=== PATIENT | female | born 2000 | race African-American/Black ===

== ENCOUNTER 2024-10-26 20:55 | Emergency (ER) | payer OTHER, SELFPAY ==
--- OUTSIDE RECORDS SUMMARY | 2024-10-26 21:22 | XMS_ITS | Encounter Summary ---
Author Organization [employer] Address [address] [place] [id number] Care Team Providers Care Brick Maker Name Role Phone Unavailable Primary Care Provider Unavailabl e Encounter Details Date Type Department Care Team (Late st Contact Info) Description 09/11/2021 Transcribed Document [facility] [place] Family Medicine Counts include 234 beds at the [facility] [place] [address] ProviderMac MD [address] [place], [place] [id number] Social History Tobacco Use Types Packs/Day Years Used Date Smoking Tobacco: Never Assessed Comments Unknown Sex and Gender Information Value Date Recorded Sex Assigned at Female 11/15/2021 4:02 PM CDT Legal Sex Female 4:02 PM CDT Gender Identity Female 11/15/2021 4:02 PM CDT Sexual Orientation Not on file documented as of this encounter Miscellaneous Notes * Cerner Conversion Note - Historical ProviderMD - 09/11/2021 2:20 AM CDT [place] Suicide Severity Rating Scale (C-SSRS) Entered On: 09/11/2021 2:55 EDT Performed On: 09/11/2021 2:54 EDT by Mayela Galvez RN [place] Suicide Severity Rating Scale (C-SSRS) CSSRS Past Month Wish to be : No CSSRS Past Month Suicidal Thoughts : No CSSRS Lifetime Suicide Behavior : No Suicide Severity Rating Score : 0 Suicide Severity Rating : No Additional Care Required at this time Mayela Galvez RN - 09/11/2021 2:54 EDT documented in this encounter Plan of Treatment Not on file documented as of this encounter Visit Diagnoses Not on filedocumented in this encounter
--- OUTSIDE RECORDS SUMMARY | 2024-10-26 21:22 | XMS_ITS | Encounter Summary ---
Author Organization [employer] Address [address] [place] [address] Care Team Providers Care Inspector Balance Truing Name Role Phone Unavailable Primary Care Provider Unavailabl e Encounter Details Date Type Department Care Team (Late st Contact Info) Description 09/11/2021 Transcribed Document [facility] [place] [facility] to [facility] [place] [address] ProviderMac MD [address] [place] [id number] Social History Tobacco Use Types Packs/Day Years Used Date Smoking Tobacco: Never Assessed Comments Unknown Sex and Gender Information Value Date Recorded Sex Assigned at Female 11/15/2021 4:02 PM CDT Legal Sex Female 4:02 PM CDT Gender Identity Female 11/15/2021 4:02 PM CDT Sexual Orientation Not on file documented as of this encounter Miscellaneous Notes * Cerner Conversion Note - Mac ProviderMD - 09/11/2021 2:48 AM CDT Patient: GETACHEW TUTTLE Age: 21 years Sex: Female : 2000 Associated Diagnoses: Intussusception; Abdominal pain; Mass of omentum Author: DAGOBERTO NAVARRO MD Basic Information History source: Patient. Arrival mode: Private vehicle. History limitation: None. Additional information: Chief Complaint from Nursing Triage Note : Chief Complaint 09/11/2021 2:27 EDT Chief Complaint pt to ER c/o RLQ abd pain w/ nausea that began yesterday morning. reports she went to [facility] last night and was told it may be her appendix, however the CT machine there was down and they said that she needed to go be evaluated somewhere else . History of Present Illness This is a 21-year-old female with a past medical history significant for hypertension, depression who presents to the emergency department for 1 day of right lower quadrant abdominal pain. Pain is worse with deep breathing and movement. She has not had any nausea or vomiting. No fever. No history of abdominal surgeries. She has no known history of ovarian cyst and denies any vaginal discharge. She has not had any dysuria or hematuria. She notes that she just came off of her menstrual cycle so does not think she is . She went to [facility] and was told that she could have appendicitis, but there is CT scan machine was not working so she needed to go to another hospital. Review of Systems Additional review of systems information: 10 point review of systems reviewed and negative except as stated in history of present illness . Health Status Allergies: Allergic Reactions (Selected) Severity Not Documented Ibuprofen- Bleeding. Penicillin- Rash.. Medications: (Selected) Prescriptions Prescribed [place] 5 mg-325 mg oral tablet: 1 Tab, Oral, Q6H, PRN: for pain, 12 Tab, 0 Refill(s) cyclobenzaprine 10 mg oral tablet: 1 Tab, Oral, TID, PRN: for spasm, 10 Tab, 0 Refill(s) Documented Medications Documented amLODIPine 5 mg oral tablet: Tab, Oral, Daily, 0 Refill(s) chlorthalidone 25 mg oral tablet: Tab, Oral, Daily, 0 Refill(s) escitalopram 10 mg oral tablet: Tab, Oral, Daily, 0 Refill(s) losartan 50 mg oral tablet: Tab, Oral, Daily, 0 Refill(s), per nurse's notes. Immunizations: Per nurse's notes. Past Medical/ Family/ Social History Medical history Reviewed as documented in chart. Surgical history: No active procedure history items have been selected or recorded., Reviewed as documented in chart. Family history: No family history items have been selected or recorded., Reviewed as documented in chart. Social history: Social & Psychosocial Habits Alcohol 02/11/2017 Alcohol Use History, Social Habits No Substance Abuse 02/11/2017 Recreational Drug Use History No Recreational Drug Use Last 12 Months No Tobacco 02/11/2017 Smoking Status Never smoker , Reviewed as documented in chart. Problem list: No qualifying data available , per nurse's notes. Physical Examination Vital Signs Vital Signs/Vital Measures 09/11/2021 2:27 EDT Blood Pressure Location Arm, right upper Blood Pressure Source Non-Invasive BP Device Systolic Blood Pressure 175 mmHg HI Diastolic Blood Pressure 93 mmHg HI Temperature Source Oral Temperature Mode Fahrenheit Temperature, Fahrenheit 98.9 Deg F Clinical Temperature, C 37.2 Deg C Peripheral Pulse Rate 110 bpm HI Respiratory Rate 18 Breaths/Min Oxygen Saturation 95 % Oxygen Therapy Mode Room air . Per nurse's notes. Measurements 09/11/2021 2:27 EDT Height Source Stated Height Entry Format [place] Height/Length, FAROESE (ft) 5 ft Height/Length FAROESE 7 Inch CLINICALHEIGHT 170.18 cm [place] Body Weight 61.16 kg Weight Source, ED Critical estimated dosing weight Weight Entry Format [place] Weight [place] lb 470 lb CLINICALWEIGHT 213.64 kg Body Surface Area (BSA) 2.91 m2 Body Mass Index 73.8 kg/m2 >HHI . Oxygen Saturation 09/11/2021 2:27 EDT Oxygen Saturation 95 % . General: Alert, no acute distress. Skin: Warm, dry. Head: Normocephalic. Neck: Supple. Ears, nose, mouth and throat: Oral mucosa moist. Cardiovascular: No murmur, Regular tachycardia. Respiratory: Lungs are clear to auscultation, respirations are non-labored, breath sounds are equal. Gastrointestinal: Soft, Nontender, Non distended. Neurological: Alert and oriented to person, place, time, and situation, normal speech observed. Psychiatric: Cooperative. Medical Decision Making Documents reviewed: Emergency department nurses' notes, prior records. Results review: Lab results : Lab Results 09/11/2021 3:20 EDT Sodium Level 139 mmol/L Potassium Level 3.6 mmol/L Chloride Level 105 mmol/L Carbon Dioxide Level 27 mmol/L Anion Gap 11 Glucose Level 93 mg/dL Blood Urea Nitrogen 7 mg/dL CREATININE 0.80 mg/dL eGFR >60 mL/min/1.73m2 eGFR NonAfrican >60 mL/min/1.73m2 Bun/Creatinine 8.8 Calcium Level 9.1 mg/dL Protein Total 7.5 Gram/dL Albumin Level 3.1 Gram/dL LOW Globulin 4.4 Gram/dL A/G Ratio 0.7 LOW Bilirubin Total 0.7 mg/dL Alk Phos 69 Units/Liter AST 9 Units/Liter ALT 20 Units/Liter Lipase Level 50 Units/Liter LOW Lactic Acid Level 1.6 mmol/L WBC 13.8 K/uL HI RBC 4.63 Million/uL Hgb 9.9 g/dL LOW Hct 33.3 % LOW MCV 71.9 fL LOW MCH 21.4 pg LOW MCHC 29.7 Gram/dL LOW Platelet Count 341 K/uL MPV 10.6 fL RDW 17.2 % HI Neut % 67.9 % Neut # 9.42 K/uL HI Lymph % 23.8 % Lymph # 3.29 x10(3)/uL [place] % 6.4 % [place] # 0.88 K/uL Eos % 1.0 % Eos # 0.14 x10(3)/uL Baso % 0.3 % Baso # 0.04 x10(3)/uL Slide Review No IG# 0.08 x10(3)/uL HI IG% 0.60 % 09/11/2021 3:07 EDT HCG Result Negative Internal Control Line Present Yes Internal Control Background Clear Yes Device Lot Number [id number] 09/11/2021 3:06 EDT Urine Type. U CleanCatch Urine Color [place] Urine Appearance Cloudy Urine Specific [place] 1.020 Urine pH Dipstick 6.0 Urine Leukocyte Esterase Small Urine Nitrite Negative Urine Protein Dipstick Negative Urine Glucose Dipstick Negative Urine Ketones Dipstick Negative Urine Urobilinogen Dipstick 0.2 EU/dL Urine Bilirubin Dipstick Negative Urine Blood Dipstick Large Ur RBC 2-5 /HPF Ur WBC 2-5 /HPF Ur Bacteria 2+ Ur Mucous Trace Ur Squamous Epithelial Cells 5-10 /HPF Urine Culture if Indicated Not Indicated . Radiology results: CT abdomen/pelvis with IV contrast: FINDINGS: The lung bases are clear. No pleural effusion identified. Small calcified granuloma in the lingula. The retroperitoneal structures are unremarkable. No renal stone or urinary tract obstruction is identified. Gallbladder and bile ducts unremarkable. No abnormality of liver, spleen, or pancreas identified. Aorta and inferior vena cava unremarkable. No adenopathy or ascites is identified. The stomach and duodenum are unremarkable. There is the appearance of enteroenteric intussusception and small intestine of the anterior mid pelvis. The intussusception measures approximately 6 cm in length, and the adjacent bowel wall is unremarkable. No obvious mural lesion is seen at this site. The small intestine proximal and distal to this is normal appearing. See discussion below. The appendix is normal. No significant large bowel pathology is appreciated. . Notes: CT scan shows no appendicitis. There is a small abnormal area of the lateral aspect of the omentum that may be a lipoma, or sequela of an old fat infarct. There is also an enteroenteric intussusception with no obstruction and no surrounding stranding or bowel abnormalities. I discussed these findings with Dr. Gutierrez who has advised that the patient would have 2 choices: First, she can go home and be on a clear liquid diet of the next 24 hours to see if she is feeling better, or be admitted for observation and serial abdominal exams. I have relayed this information and the findings on her CT scan to the patient and she would like to go home and assures me that she will be able to return if symptoms worsen. There is no UTI and test is negative. No large ovarian cyst noted on CT scan, ovarian torsion unlikely.. Impression and Plan Diagnosis Intussusception - Discharge, Medical Abdominal pain - Discharge, Medical Mass of omentum - Discharge, Medical Plan Condition: Stable. Disposition: Discharged Admit/Transfer/Discharge: Discharge (Order): Start: 09/11/2021 6:15 EDT, Discharge to: Home. Patient was given the following educational materials: Abdominal Pain, Adult, Intussusception, Pediatric. Follow up with: KIRSTIE KING Within 1 to 2 days. Counseled: Patient, Regarding diagnosis, Regarding diagnostic results, Regarding treatment plan, Patient indicated understanding of instructions. documented in this encounter Plan of Treatment Not on file documented as of this encounter Visit Diagnoses Not on filedocumented in this encounter
--- OUTSIDE RECORDS SUMMARY | 2024-10-26 21:22 | XMS_ITS | Referral Summary ---
Author Organization [employer] Address [address] [place] [address] Care Team Providers Care Sill Worker Name Role Phone Unavailable Primary Care Provider Unavailabl e Social History Tobacco Use Types Packs/Day Years Used Date Smoking Tobacco: Never Assessed Comments Unknown Sex and Gender Information Value Date Recorded Sex Assigned at Female 11/15/2021 4:02 PM CDT Legal Sex Female 4:02 PM CDT Gender Identity Female 11/15/2021 4:02 PM CDT Sexual Orientation Not on file Plan of Treatment Not on file
--- OUTSIDE RECORDS SUMMARY | 2024-10-26 21:22 | XMS_ITS | Encounter Summary ---
Author Organization [employer] Address [address] [place] [address] Care Team Providers Care Rn Rehabilitation Name Role Phone Unavailable Primary Care Provider Unavailabl e Encounter Details Date Type Department Care Team (Late st Contact Info) Description 04/03/2019 Transcribed Document [facility] [place] Family Medicine [address] [place] [address] ProviderMac MD [address] [phone] Social History Tobacco Use Types Packs/Day Years Used Date Smoking Tobacco: Never Assessed Comments Unknown Sex and Gender Information Value Date Recorded Sex Assigned at Female 11/15/2021 4:02 PM CDT Legal Sex Female 4:02 PM CDT Gender Identity Female 11/15/2021 4:02 PM CDT Sexual Orientation Not on file documented as of this encounter Miscellaneous Notes * Cerner Conversion Note - Mac Jordan MD - 04/03/2019 1:20 PM IT ADMINISTRATIVE ASSISTANT DATE OF SERVICE: 03/29/2019 AGE: 19. HEIGHT: 68. WEIGHT: 390. BODY MASS INDEX: 59. FAMILY PHYSICIAN: Elliot Allred MD in [place], [place]. TESTING PERFORMED: Polysomnography. FINDINGS: 1. The time in bed was 397 minutes. The total sleep time was 334 minutes. The sleep efficiency was reduced at 60%. There was only 6 minutes of REM sleep present. 2. Obstructive sleep apnea is present and is severe. The overnight AHI is 51, and sleep apnea appears to become very severe during the very limited amount of REM sleep present. 3. Mild nocturnal oxygen saturation is present. The lowest saturation was 80%; however, there is only less than 1 minute below 88% saturation. 4. EKG data showed sinus rhythm with no significant arrhythmias. 5. No periodic leg movements in sleep were present. 6. All technical data has been reviewed and hypopneas were scored by the 4% desaturation rule. IMPRESSION: Obstructive sleep apnea is present and is severe. PLAN: Patient will be started on auto-CPAP and off this in the interim with clinic followup scheduled. We will review sleep hygiene measures, sleep apnea related medical driving risks and treatment options as well as progress on therapy at that time. /[id number] Sylwia Nuno MD PAC/AQ / PAC / MODL /[id number] documented in this encounter Plan of Treatment Not on file documented as of this encounter Visit Diagnoses Not on filedocumented in this encounter
--- OUTSIDE RECORDS SUMMARY | 2024-10-26 21:22 | XMS_ITS | Encounter Summary ---
Author Organization [employer] Address [address] [place] [address] Care Team Providers Care Surgery Attendant Name Role Phone Unavailable Primary Care Provider Unavailabl e Encounter Details Date Type Department Care Team (Late st Contact Info) Description 09/11/2021 Transcribed Document [facility] [place] [address] ProviderMac MD [address] [place] [address] Social History Tobacco Use Types Packs/Day [...] Conversion Note - Mac Jordan MD - 09/11/2021 6:17 AM CDT [facility] [place] [address] GETACHEW TUTTLE :2000 Visit Time:09/11/2021 Your Visit Summary Your Care Team Primary Provider: DAGOBERTO NAVARRO Secondary Provider: Your Diagnosis Abdominal pain Abdominal pain Intussusception Mass of omentum Medical Information You may obtain a copy of your Emergency Department visit from Medical Records by calling the hospital phone number listed above and asking to be directed to the Medical Records Department. If you had special tests, such as EKG???s or X-rays, the interpretation of your tests given to you by the Emergency Department Physician is a preliminary report. Some fractures and illnesses fail to show up on preliminary tests. These will be reviewed again and we will call you if there are any new suggestions. If your symptoms continue notify your physician. After you leave, you should follow the instructions provided. What to do next Follow-Up Appointments Follow Up with KIRSTIE KING When Within 1 to 2 days Where: [address], [place] [id number]- Business (1) Allergies ibuprofen (Bleeding) penicillin (Rash) Immunizations This Visit No Immunizations Found Medications What How Much When Instructions Next Dose acetaminophen-hydrocodone ([place] 5 mg-325 mg oral tablet) 1 Tablet(s) Oral Every 6 Hours as needed for for pain amLODIPine (amLODIPine 5 mg oral tablet) Oral Every Day chlorthalidone (chlorthalidone 25 mg oral tablet) Oral Every Day cyclobenzaprine (cyclobenzaprine 10 mg oral tablet) 1 Tablet(s) Oral Three Times A Day as needed for for spasm escitalopram (escitalopram 10 mg oral tablet) Oral Every Day losartan (losartan 50 mg oral tablet) Oral Every Day The home medications listed are only as accurate as the information you provided. Please continue taking all of your medications prescribed by your Primary Care Provider unless specifically told to change or discontinue the medication. Please direct any questions regarding your home medications to your Primary Care Provider. Take your medications faithfully. Do NOT skip medication. Do NOT stop taking medications without the direction of a physician. Carry a list of your medications with you at all times, and take this medication list with you to your first follow up visit. Report any side effects. Avoid herbal remedies unless discussed with your physician. As part of your treatment plan, your physician may have prescribed a limited course of a controlled substance. This medication may be given to help people with moderate or severe pain or for other medical conditions, but there are risks involved with treatment. Common side effects may include nausea, constipation, drowsiness, sweating, itching, dry mouth, and rash. More serious side effects may include cognitive and motor impairment, like problems with thinking, concentrating, alertness, and movement (e.g. slowed reflexes), and driving and operating heavy machinery can be dangerous. It is important for you to talk to your physician if you have these side effects or questions. These controlled substances can produce physical dependence and be habit-forming if taken for an extended period of time, which means that the body has gotten used to them and may experience withdrawal symptoms if they are abruptly stopped. Withdrawal symptoms can include runny nose, sweating, goose bumps, diarrhea, abdominal cramping, rapid heartbeat, difficulty sleeping, and nervousness. Please dispose of unused and medications per pharmacy guidance. Test Results Laboratory or Other Results This Visit (last charted value for your 09/11/2021 visit) Hematology 09/11/2021 3:20 AM WBC: 13.8 K/uL -- Normal range between ( 4.5 and 10.5 ) RBC: 4.63 Million/uL -- Normal range between ( 3.93 and 5.22 ) Hct: 33.3 % -- Normal range between ( 34.1 and 44.9 ) Hgb: 9.9 g/dL -- Normal range between ( 11.2 and 15.7 ) Platelet Count: 341 K/uL -- Normal range between ( 163 and 369 ) MCH: 21.4 pg -- Normal range between ( 25.6 and 32.2 ) MCHC: 29.7 Gram/dL -- Normal range between ( 32.2 and 36.5 ) MCV: 71.9 fL -- Normal range between ( 79.0 and 94.8 ) Slide Review: No Eos %: 1.0 % -- Normal range between ( 0.0 and 7.0 ) Piatt #: 0.88 K/uL -- Normal range between ( 0.16 and 1.00 ) Eos #: 0.14 x10(3)/uL -- Normal range between ( 0.00 and 0.80 ) Piatt %: 6.4 % -- Normal range between ( 3.0 and 9.0 ) Baso %: 0.3 % -- Normal range between ( 0.0 and 1.5 ) Baso #: 0.04 x10(3)/uL -- Normal range between ( 0.00 and 0.20 ) RDW: 17.2 % -- Normal range between ( 11.7 and 14.9 ) Neut %: 67.9 % -- Normal range between ( 34.0 and 71.0 ) Neut #: 9.42 K/uL -- Normal range between ( 1.56 and 6.13 ) Lymph %: 23.8 % -- Normal range between ( 19.3 and 53.1 ) Lymph #: 3.29 x10(3)/uL -- Normal range between ( 1.00 and 3.90 ) MPV: 10.6 fL -- Normal range between ( 9.4 and 12.4 ) IG#: 0.08 x10(3)/uL -- Normal range between ( 0.00 and 0.05 ) IG%: 0.60 % -- Normal range between ( 0.00 and 0.60 ) Urinalysis 09/11/2021 3:06 AM Ur RBC: 2-5 /HPF Urine Nitrite: Negative Urine Leukocyte Esterase: Small Urine Appearance: Cloudy Urine Glucose Dipstick: Negative Urine Blood Dipstick: Large Urine Urobilinogen Dipstick: 0.2 EU/dL Urine Protein Dipstick: Negative Ur Bacteria: 2+ Ur Squamous Epithelial Cells: 5-10 /HPF Urine Color: [place] Ur WBC: 2-5 /HPF Urine Ketones Dipstick: Negative Ur Mucous: Trace Urine pH Dipstick: 6.0 -- Normal range between ( 6.0 and 8.0 ) Urine Bilirubin Dipstick: Negative Urine Specific [place]: 1.020 -- Normal range between ( 1.005 and 1.030 ) Urine Type.: U CleanCatch Urine Culture if Indicated: Not Indicated General Chemistry 09/11/2021 3:20 AM Creatinine Level: 0.80 mg/dL -- Normal range between ( 0.55 and 1.02 ) Sodium Level: 139 mmol/L -- Normal range between ( 136 and 146 ) Potassium Level: 3.6 mmol/L -- Normal range between ( 3.5 and 5.1 ) Chloride Level: 105 mmol/L -- Normal range between ( 102 and 112 ) Carbon Dioxide Level: 27 mmol/L -- Normal range between ( 21 and 32 ) Anion Gap: 11 -- Normal range between ( 9 and 20 ) Bilirubin Total: 0.7 mg/dL -- Normal range between ( 0.2 and 1.2 ) A/G Ratio: 0.7 -- Normal range between ( 1.1 and 2.5 ) ALT: 20 Units/Liter -- Normal range between ( 13 and 56 ) AST: 9 Units/Liter -- Normal range between ( 5 and 37 ) Globulin: 4.4 Gram/dL -- Normal range between ( 1.5 and 4.5 ) Alk Phos: 69 Units/Liter -- Normal range between ( 27 and 136 ) Bun/Creatinine: 8.8 -- Normal range between ( 8.0 and 20.0 ) Calcium Level: 9.1 mg/dL -- Normal range between ( 8.4 and 10.1 ) eGFR : >60 mL/min/1.73m2 eGFR NonAfrican: >60 mL/min/1.73m2 Glucose Level: 93 mg/dL -- Normal range between ( 74 and 106 ) Blood Urea Nitrogen: 7 mg/dL -- Normal range between ( 7 and 22 ) Lactic Acid Level: 1.6 mmol/L -- Normal range between ( 0.4 and 2.0 ) Protein Total: 7.5 Gram/dL -- Normal range between ( 6.4 and 8.2 ) Albumin Level: 3.1 Gram/dL -- Normal range between ( 3.4 and 5.0 ) Lipase Level: 50 Units/Liter -- Normal range between ( 73 and 393 ) Education Materials Intussusception, Pediatric An intussusception is a condition in which a section of intestine folds into or slides inside the next section of intestine. This is similar to the way a telescope folds when you close it. The intestines are the part of the digestive system that absorb food and liquids after they pass through the stomach. Most digestion takes place in the upper part of the intestines (small intestine). Water is absorbed and stool is formed in the lower part of the intestines (large intestine). Most intussusceptions happen in the area where the small intestine connects to the large intestine (ileocecal junction). This condition is most common in children. Intussusception causes a blockage in the intestines. It also puts pressure on the part of the intestine that has folded in. This part can become swollen, irritated, and bloody. The increased pressure can also cut off the blood supply to that part of the intestine. If this happens, a hole (perforation) in the wall of the intestine may develop. Blood and fluids from the intestines may leak into the belly, causing irritation (peritonitis). Peritonitis is a medical emergency that needs to be treated right away. What are the causes? In most cases, the cause of this condition is not known. In some cases, the cause may be an abnormal growth in the intestine. What increases the risk? Children are more likely to develop this condition if they: ??? Are male. ??? Are younger than 3 years of age. Intussusception is uncommon in infants younger than 3 months and in children 6 years and older. ??? Recently had a viral infection. ??? Have an abnormal growth in the intestine, such as a: ? Polyp. ? Cyst. ? Tumor. ? Poorly formed blood vessel (malformation). ??? Had a recent surgery in the intestines. ??? Have had an intussusception in the past. ??? Recently received the rotavirus vaccine. This is a rare side effect of the vaccine. What are the signs or symptoms? Symptoms of this condition include: ??? Sudden and severe pain in the abdomen. At first, the pain may last for 15???20 minutes, go away, and then come back. Over time, the pain gets worse and lasts longer. ??? Crying. ??? Refusing to eat or drink. ??? Pulling his or her knees up to the chest. Other signs and symptoms may include: ??? Vomiting. ??? Bloody stools tinged with mucus (currant jelly stools). ??? Swelling and hardening of the belly. ??? Fever. ??? Weakness. ??? Pale skin. ??? Sweating. ??? Being cranky, sleepy, or difficult to wake up. How is this diagnosed? This condition may be diagnosed based on: ??? Your child's symptoms. ??? Your child's medical history. ??? A physical exam. Your child's health care provider may feel the child's abdomen for a hard, sausage-shaped lump. ??? Imaging tests to confirm the diagnosis. These may include ultrasound and X-ray of the abdomen. How is this treated? This condition is treated in the hospital. The goal of treatment is to correct the intussusception before peritonitis develops. Treatment may include: ??? Giving fluids and medicine through an IV. ??? Placing a tube into your child's stomach through his or her nose (nasogastric tube) to remove stomach fluids. ??? If there is no perforation or peritonitis: ? Your child may be given an enema. This passes air or fluid into the intestine. The pressure of the air or fluid can: ? Clear the intussusception. ? Help the health care provider clearly see where the problem is. ? Your child will have an ultrasound to make sure air and fluids in the intestines are flowing normally. ??? Your child may need surgery if: ? Enema treatment has not worked to clear the intussusception. ? There is any sign of perforation or peritonitis. ? Areas of or perforated intestinal tissue need to be removed. ? The condition returns after enema treatment. ??? Your child may need to stay in the hospital so the health care team can make sure that: ? The intussusception does not happen again. ? He or she passes stool normally. ? He or she can eat a normal diet. Follow these instructions at home: Medicines ??? Give psmh-vmz-khjifrw and prescription medicines only as told by your child's health care provider. ??? Do not give your child aspirin because of the association with Bethel's syndrome. ??? If your child was prescribed an antibiotic medicine, give it to him or her as told by the child's health care provider. Do not stop giving the antibiotic even if he or she starts to feel better. General instructions ??? Follow all instructions from your child's health care provider. ??? Follow the health care provider's directions about your child's activity level. Ask the health care provider what activities are safe for your child. ??? Watch for any signs and symptoms of intussusception returning. ??? Keep all follow-up visits as told by your child's health care provider. This is important. Get help right away if: ??? Your child develops signs or symptoms of intussusception at home. These include: ? Crying excessively, refusing to eat or drink, or pulling his or her knees up to the chest. ? Repeated vomiting. ? Bloody stools tinged with mucus (currant jelly stools). ? Swelling and hardening of the belly. ? Fever. ? Weakness. ? Pale skin. ? Sweating. ? Being cranky, sleepy, or difficult to wake up. Summary ??? Intussusception is a folding of the intestine that causes a blockage in the intestines. ??? In most cases, the cause of this condition is not known. Risk factors include being male, being 3 months to 3 years old, or having had a recent viral infection. ??? The goal of treatment is to remove the blockage. Sometimes surgery is needed. A medical emergency can result if this is not treated. This information is not intended to replace advice given to you by your health care provider. Make sure you discuss any questions you have with your health care provider. Document Revised: 11/04/2020 Document Reviewed: 11/04/2020 [employer] Patient Education ?? 2020 [employer] Abdominal Pain, Adult Pain in the abdomen (abdominal pain) can be caused by many things. Often, abdominal pain is not serious and it gets better with no treatment or by being treated at home. However, sometimes abdominal pain is serious. Your health care provider will ask questions about your medical history and do a physical exam to try to determine the cause of your abdominal pain. Follow these instructions at home: Medicines ??? Take [id number] and prescription medicines only as told by your health care provider. ??? Do not take a laxative unless told by your health care provider. General instructions ??? Watch your condition for any changes. ??? Drink enough fluid to keep your urine pale yellow. ??? Keep all follow-up visits as told by your health care provider. This is important. Contact a health care provider if: ??? Your abdominal pain changes or gets worse. ??? You are not hungry or you lose weight without trying. ??? You are constipated or have diarrhea for more than 2???3 days. ??? You have pain when you urinate or have a bowel movement. ??? Your abdominal pain wakes you up at night. ??? Your pain gets worse with meals, after eating, or with certain foods. ??? You are vomiting and cannot keep anything down. ??? You have a fever. ??? You have blood in your urine. Get help right away if: ??? Your pain does not go away as soon as your health care provider told you to expect. ??? You cannot stop vomiting. ??? Your pain is only in areas of the abdomen, such as the right side or the left lower portion of the abdomen. Pain on the right side could be caused by appendicitis. ??? You have bloody or black stools, or stools that look like tar. ??? You have severe pain, cramping, or bloating in your abdomen. ??? You have signs of dehydration, such as: ? Dark urine, very little urine, or no urine. ? Cracked lips. ? Dry mouth. ? Sunken eyes. ? Sleepiness. ? Weakness. ??? You have trouble breathing or chest pain. Summary ??? Often, abdominal pain is not serious and it gets better with no treatment or by being treated at home. However, sometimes abdominal pain is serious. ??? Watch your condition for any changes. ??? Take ihaz-kng-hgytlkd and prescription medicines only as told by your health care provider. ??? Contact a health care provider if your abdominal pain changes or gets worse. ??? Get help right away if you have severe pain, cramping, or bloating in your abdomen. This information is not intended to replace advice given to you by your health care provider. Make sure you discuss any questions you have with your health care provider. Document Revised: 06/25/2020 Document Reviewed: 09/15/2019 [employer] Patient Education ?? 2020 [employer]. Emergency Awareness and Preventative Care STROKE is an EMERGENCY Every Minute Counts Act FAST and Check for these signs: FACE Does the face look uneven? ARM Does one arm drift down? SPEECH Does their speech sound strange? TIME Call at any sign of stroke Stroke Risk Factors Atrial Fibrillation (irregular heartbeat) Diabetes Family history of stroke Heart Disease Heavy alcohol use High Blood Pressure High Cholesterol Physical inactivity and obesity Smoking Cigarette Smoking The facts are clear, cigarette smoking will shorten your life. Smoking can cause many illnesses along the way. As a healthcare provider, we recommend that you stop smoking. Assistance with quitting is available by contacting 9-295-OIYN-NOW. This is a free resource providing counseling, support, and referral. Or you may contact your personal physician. National Suicide Prevention Lifeline: The National Suicide Prevention Lifeline is a national network of local crisis centers that provides free and confidential emotional support to people in suicidal crisis or emotional distress 24 hours a day, 7 days a week. Don't Wait! Stop a Heart Attack Before it Starts What is a heart attack? A heart attack is damage or to a part of the heart from severely decreased or lack of blood flow to the heart. Over time, arteries can become narrow from the buildup of fat and cholesterol, which is called plaque. The plaque can rupture causing a blood clot to form. When the blood clot forms, the artery can become severely narrowed or completely blocked, causing a heart attack. Heart attack is the leading cause of in the [place]. 85% of muscle damage occurs within the first 2 hours. Delay in the recognition of heart attack symptoms increases the chances of . Know the early symptoms of a heart attack: Nausea Feeling of fullness in chest Jaw Pain Pain that travels down one or both arms Fatigue/being tired Anxiety Back Pain Chest pressure, squeezing, or discomfort Shortness of breath Sweating, or a cold sweat Feeling of impending doom There are unusual signs of a heart attack, too! Women, the elderly, and diabetics may present with atypical symptoms: Fainting/dizziness Weakness Confusion Risk Factors for a Heart Attack Some heart disease risk factors, such as age and family history, cannot be changed. Others, like smoking and lack of exercise, can be changed. Smoking High Cholesterol High Blood Pressure Family History Obesity Age Gender (Males are at higher risk) Lack of Exercise Diabetes Diet Stress Excessive Alcohol Intake If you or someone you know is experiencing the signs and symptoms of a heart attack, DON???T DELAY. Call immediately and seek help. If someone collapses, perform CPR! Do not attempt to drive if you are having symptoms of heart attack. Hands-Only CPR Why Hands-Only CPR? Hands-Only CPR has been shown to be as effective as conventional CPR for cardiac arrests that occur outside of a hospital. Survival depends on immediately receiving CPR from someone nearby. How do you perform Hands-Only CPR? There are two easy steps: Call if you see a teen or adult collapse Push hard and fast in the center of the chest at a beat of 100 beats per minute. Save a life! 4 WAYS TO GET AHEAD OF SEPSIS SEPSIS is a MEDICAL EMERGENCY. Time matters! Infections put you and your family at risk for a life-threatening condition called sepsis. Sepsis is the body's extreme response to an infection. It is life-threatening, and without timely treatment, sepsis can rapidly lead to tissue damage, organ failure, and . Sepsis happens when an infection you already have-in your skin, lungs, urinary tract or somewhere else-triggers a chain reaction throughout your body. 1 PREVENT INFECTIONS Take good care of chronic conditions. Talk to your doctor about getting the recommended vaccines. 2 PRACTICE GOOD HYGIENE Wash your hands frequently. Keep cuts or open sores clean and covered until they are healed. 3 KNOW THE SYMPTOMS Confusion or disorientation Shortness of breath High heart rate Fever, shivering, or feeling very cold Extreme pain or discomfort Clammy or sweaty skin 4 ACT FAST Get medical care IMMEDIATELY if you suspect sepsis or if you have an infection that is not getting better or is getting worse. To learn more about sepsis and how to prevent infections, visit www.cdc.gov/sepsis. The examination and treatment you have received in the Emergency Department has been done to provide an appropriate evaluation and stabilizing treatment on an emergency basis only. Given the limited resources, it is not meant to be a substitute for complete medical care. The follow-up doctor you named will receive a copy of your records and all test reports. IT IS IMPORTANT THAT YOU SCHEDULE A FOLLOW-UP APPOINTMENT AND ARE RE-EVALUATED. You should report any new complaints, symptoms, or remaining problems at that time. IT IS IMPOSSIBLE FOR THE EMERGENCY DEPARTMENT TO RECOGNIZE AND TREAT ALL ELEMENTS OF INJURY OR ILLNESS IN A SINGLE VISIT. If you have been referred to a specialist physician, it means that we believe you may have a condition that requires the expertise of a specialist. These physicians work in partnership with the hospital and have agreed to see referred patients in their office for further evaluation. KEEP IN MIND THAT THE SPECIALIST HAS HIS/HER OWN OFFICE POLICIES WHICH MAY REQUIRE PROPER INSURANCE OR PAYMENT UP FRONT BEFORE THE SPECIALIST WILL SEE YOU. It is your responsibility to call the specialist physician to make an appointment. We do not have the ability to refer patients to specialists/physicians that work with specific insurance companies. Please be advised that all financial charges or billing practices are determined by that practice, not the hospital. If your insurance company requires that you see a specialist from their approved list, it is your responsibility to contact your insurance company to make those arrangements. It is also your responsibility to follow any other requirements of your insurance company necessary to obtain coverage for claims submitted. We will bill your insurance; however, you are responsible today for any co-pay amounts. You will receive a separate bill for any services you may have received including: emergency, radiology, or pathology physicians. Patient Name:GETACHEW TUTTLE I have received this information and was given the opportunity to ask questions. Patient/Grinder Outside Diameter Name: Patient/Grinder Outside Diameter Signature: Relationship to Patient: Clinician/Hospital Grinder Outside Diameter Signature: Please Provide a Telephone Number Where You Can Be Reached: Is it Permissible To Leave a Message? Date: documented in this encounter Plan of Treatment Not on file documented as of this encounter Visit Diagnoses Not on filedocumented in this encounter
--- OUTSIDE RECORDS SUMMARY | 2024-10-26 21:22 | XMS_ITS | Encounter Summary ---
Author Organization [employer] Address [address] [place] [id number] Care Team Providers Care Payroll Machine Operator Name Role Phone Unavailable Primary Care Provider Unavailabl e Encounter Details Date Type Department Care Team (Late st Contact Info) Description 09/11/2021 Transcribed Document [facility] [place] [facility] [place] [address] ProviderMac MD [facility] [place], [place] [id number] Social History Tobacco Use Types Packs/Day Years [...] Conversion Note - Historical ProviderMD - 09/11/2021 6:15 AM CDT documented in this encounter Plan of Treatment Not on file documented as of this encounter Visit Diagnoses Not on filedocumented in this encounter
--- OUTSIDE RECORDS SUMMARY | 2024-10-26 21:22 | XMS_ITS | Encounter Summary ---
Author Organization [employer] Address [address] [place] [id number] Care Team Providers Care Pharmacovigilance Specialist Name Role Phone Unavailable Primary Care Provider Unavailabl e Encounter Details Date Type Department Care Team (Late st Contact Info) Description 09/11/2021 Transcribed Document [facility] [place] Family Medicine [facility] [place] [address] ProviderMac [place] [facility] [place] [id number] Social History Tobacco Use Types Packs/Day Years [...] Conversion Note - Mac ProviderMD - 09/11/2021 2:20 AM CDT ED Assessment Entered On: 09/11/2021 2:56 EDT Performed On: 09/11/2021 2:55 EDT by Mayela Galvez RN ED Quick Look Assessment Level of Consciousness : Alert Affect/Behavior : Appropriate Orientation : Oriented x 4 Skin Temperature : Warm Skin Description : Dry Mayela Galvez RN - 09/11/2021 2:55 EDT ED General-Functional Assess Information Obtained From : Patient Communication Barrier : None Primary Language : [place] Citizen Any Spiritual/Cultural Needs or Requests : No Currently in Unsafe Situation : No Mayela Galvez RN - 09/11/2021 2:55 EDT Social Habits Smoking Status : Never (less than 100 in lifetime; none in last 30 days) Smokeless Tobacco Status : Never Desires Tobacco Cessation Calc : 0 Mayela Galvez RN - 09/11/2021 2:55 EDT Social History (As Of: 09/11/2021 02:56:43 EDT) Tobacco: Smoking Status Never smoker. (Last Updated: 02/11/2017 18:43:44 EDT by AGUSTIN BOWSER, RN) Alcohol: Alcohol Use History No. (Last Updated: 02/11/2017 18:43:48 EDT by AGUSTIN BOWSER, RN) Substance Abuse: Drug Use Hx: No. Use in Last 12 Months: No. (Last Updated: 02/11/2017 18:43:53 EDT by AGUSTIN BOWSER, RN) Gastrointestinal ED Gastrointestinal Assessment WDL : WDL with exceptions Gastrointestinal Symptoms : Abdominal pain, Constipation, Nausea, Vomiting Mayela Galvez RN - 09/11/2021 2:55 EDT Neurologic ASMT, ED Neurologic Assessment WDL : Mayela Haines RN - 09/11/2021 2:55 EDT Electronically signed by Nahum Chi Conversion Public Relations Studies Director Cerner at 09/05/2022 9:50 AM CDT documented in this encounter Plan of Treatment Not on file documented as of this encounter Visit Diagnoses Not on filedocumented in this encounter
--- OUTSIDE RECORDS SUMMARY | 2024-10-26 21:22 | XMS_ITS | Encounter Summary ---
Author Organization [employer] Address [address] [place] [id number] Care Team Providers Care Train Controller Name Role Phone Unavailable Primary Care Provider Unavailabl e Encounter Details Date Type Department Care Team (Late st Contact Info) Description 09/11/[address] [facility] [place] [address] [place] [address] ProviderMac MD [address] [place] [id number] Social History Tobacco Use Types Packs/Day Years [...] Conversion Note - Historical ProviderMD - 09/11/2021 3:02 AM CDT ED POC - URINE HCG Entered On: 09/11/2021 3:07 EDT Performed On: 09/11/2021 3:07 EDT by Kyrie Messina PARAMEDIC Point of Care Urine HCG HCG Result : Negative Internal Control Line Present : Yes Internal Control Background Clear : Yes Device Lot Number : [id number] Kyrie Messina PARAMEDIC - 09/11/2021 3:07 EDT Electronically signed by Nahum Chi Conversion Painter And Paperhanger Apprentice Cerner at 09/05/2022 10:08 AM CDT documented in this encounter Plan of Treatment Not on file documented as of this encounter Visit Diagnoses Not on filedocumented in this encounter
--- OUTSIDE RECORDS SUMMARY | 2024-10-26 21:22 | XMS_ITS | Clinical Summary ---
Author Organization [employer] Address [address] [place] [address] Care Team Providers Care Bench Manager Name Role Phone Unavailable Primary Care Provider [...]
--- OUTSIDE RECORDS SUMMARY | 2024-10-26 21:22 | XMS_ITS | Encounter Summary ---
Author Organization [employer] Address [address] [place] [address] Care Team Providers Care Emergency Vehicle Technician Name Role Phone Unavailable Primary Care Provider Unavailabl e Encounter Details Date Type Department Care Team (Late st Contact Info) Description 09/11/2021 Transcribed Document [facility] [place] Family Medicine [facility] [place] [address] ProviderMac MD [facility] [place] [address] Social History Tobacco Use Types Packs/Day Years Used Date Smoking Tobacco: Never Assessed Comments Unknown Sex and Gender Information Value Date Recorded Sex Assigned at Female 11/15/2021 4:02 PM CDT Legal Sex Female 4:02 PM CDT Gender Identity Female 11/15/2021 4:02 PM CDT Sexual Orientation Not on file documented as of this encounter Miscellaneous Notes * Adelaide Conversion Note - Mac ProviderMD - 09/11/2021 6:33 AM CDT ED Discharge Entered On: 09/11/2021 6:39 EDT Performed On: 09/11/2021 6:33 EDT by Mayela Galvez RN Discharge Process Patient Disposition : Discharge Personal Belongings With Patient : Yes Patient Education Completed : Yes Teaching Evaluation : Verbalizes understanding IV Discontinued : Yes Nursing Documentation Completed : Yes Mayela Galvez RN - 09/11/2021 6:36 EDT ED Discharge Discharge To : Home without planned follow-up Mode Of Departure : Ambulatory Accompanied By : Spouse Discharge Instructions Reviewed With, Opportunity For Questions Given : Patient Prescriptions Given to Patient : No Medications Given to Patient : Yes Number of Medications Given : 1 Mayela Galvez RN - 09/11/2021 6:36 EDT Electronically signed by Arti [facility] Conversion [employer] Math Teacher Cerner at 09/05/2022 9:49 AM CDT documented in this encounter Plan of Treatment Not on file documented as of this encounter Visit Diagnoses Not on filedocumented in this encounter
--- OUTSIDE RECORDS SUMMARY | 2024-10-26 21:22 | XMS_ITS | Encounter Summary ---
Author Organization [employer] Address [address] [place] [address] Care Team Providers Care Help Desk Intern Name Role Phone Unavailable Primary Care Provider Unavailabl e Encounter Details Date Type Department Care Team (Late st Contact Info) Description 09/11/2021 Transcribed Document [facility] [place] Family Medicine [address] [place] [address] ProviderMac MD [address] [place] [id number] Social History Tobacco Use Types Packs/Day Years [...] Historical ProviderMD - 09/11/2021 2:20 AM CDT Broset Violence Assessment Entered On: 09/11/2021 2:55 EDT Performed On: 09/11/2021 2:54 EDT by Mayela Galvez RN Broset Violence Assessment Broset Violence Checklist of Symptoms : None Broset Violence Symptoms Subtotal : 0 Broset Violence Symptoms Indicator : Low risk (0) Mayela Galvez RN - 09/11/2021 2:54 EDT documented in this encounter Plan of Treatment Not on file documented as of this encounter Visit Diagnoses Not on filedocumented in this encounter
--- OUTSIDE RECORDS SUMMARY | 2024-10-26 21:22 | XMS_ITS | Encounter Summary ---
Author Organization [employer] Address [address] [place] [address] Care Team Providers Care Marine Engine Machinist Apprentice Name Role Phone Unavailable Primary Care Provider Unavailabl e Encounter Details Date Type Department Care Team (Late st Contact Info) Description 09/11/2021 Transcribed Document [facility] [place] Family Medicine [facility] [place] [address] ProviderMac MD [facility] [place] [address] Social History Tobacco Use Types [...] ProviderMD - 09/11/2021 2:20 AM CDT ED Triage Entered On: 09/11/2021 2:30 EDT Performed On: 09/11/2021 2:27 EDT by Yanet Webb, manager investment Triage Across the Room Chief Complaint : pt to ER c/o RLQ abd pain w/ nausea that began yesterday morning. reports she went to [facility] last night and was told it may be her appendix, however the CT machine there was down and they said that she needed to go be evaluated somewhere else Triage Date/Time : 09/11/2021 2:27 EDT Yanet Webb Rn - 09/11/2021 2:27 EDT DCP GENERIC CODE Tracking Acuity : 3 - Urgent Tracking Group : [facility] ED Yanet Webb Rn - 09/11/2021 2:27 EDT Mode of Arrival : Ambulatory Transported to ED by : Walk in To Room Via : Ambulate Accompanied By : Unaccompanied ED Vital Signs : Document Height & Weight : Document ED Allergies : Document ED Reason for Visit : Document Yanet Webb Rn - 09/11/2021 2:27 EDT Infectious Disease History Does patient have symptoms of COVID-19? : No Tested for COVID19 in the past 14 days : No, Patient stated Does the Patient state known exposure to a COVID-19 positive case in the last 14 days? : No Patient Vaccinated for COVID-19 : Fully vaccinated Yanet Webb Rn - 09/11/2021 2:27 EDT Infectious Disease Risk Screening Grid Cough < 2 wks of unknown origin : NO Cough > 2 weeks : NO Blood in Sputum : NO Fever or self-reported Fever : NO Rash of unknown origin : NO Headache : NO Stiff neck : NO Night Sweats : NO Unexplained Weight Loss : NO Diarrhea (3 episode per day) : NO Yanet Webb Rn - 09/11/2021 2:27 EDT Physical contact outside [place] in the last 30 days : No Hospitalized in Foreign Country : No Infectious Disease History : None INF Disease TB Screening Calc : 0 INF Disease Recent Travel Calc : 0 Yanet Webb Rn - 09/11/2021 2:27 EDT Vital Signs ED Temperature Source : Oral Temperature Mode : Fahrenheit Temperature, Fahrenheit : 98.9 Deg F ED Pain : Yes Clinical Temperature, C : 37.2 Deg C Oxygen Therapy Mode : Room air Peripheral Pulse Rate : 110 bpm (HI) Respiratory Rate : 18 Breaths/Min Blood Pressure Location : Arm, right upper Blood Pressure Source : Non-Invasive BP Device Systolic Blood Pressure : 175 mmHg (HI) Diastolic Blood Pressure : 93 mmHg (HI) Oxygen Saturation : 95 % Yanet Webb Rn - 09/11/2021 2:27 EDT Allergy (As Of: 09/11/2021 02:30:14 EDT) Allergies (Active) ibuprofen Estimated Onset Date: Unspecified ; Reactions: Bleeding ; Created By: MARIE MOREJON RN; Reaction Status: Active ; Category: Drug ; Substance: ibuprofen ; Type: Allergy ; Updated By: MARIE MOREJON RN; Reviewed Date: 09/11/2021 2:27 EDT penicillin Estimated Onset Date: Unspecified ; Reactions: Rash ; Created By: MARIE MOREJON RN; Reaction Status: Active ; Category: Drug ; Substance: penicillin ; Type: Allergy ; Updated By: MARIE MOREJON RN; Reviewed Date: 09/11/2021 2:27 EDT Diagnosis Control ED (As Of: 09/11/2021 02:30:14 EDT) Diagnoses(Active) Abdominal pain Date: 09/11/2021 ; Diagnosis Type: Reason For Visit ; Confirmation: Complaint of ; Clinical Dx: Abdominal pain ; Classification: Medical ; Clinical Service: Emergency medicine ; Code: PNED ; Probability: 0 ; Diagnosis Code: [id number] ED Height and Weight Height Source : Stated Height Entry Format : Barlow Height, Feet : 5 ft(Converted to: 152 cm, 60 Inch) Height, Inches : 7 Inch(Converted to: 0 ft 7 Inch, 17.78 cm) Clinical Height : 170.18 cm Weight Source, ED : Critical estimated dosing weight Weight Entry Format : Barlow Weight, Pounds : 470 lb Clinical Dosing Weight : 213.64 kg Body Surface Area (BSA) : 2.91 m2 Body Mass Index : 73.8 kg/m2 (>HHI) [place] Body Weight (IBW) : 61.16 kg Yanet Webb Rn - 09/11/2021 2:27 EDT Pain Assessment Pain Assessment : Initial assessment Pain Scale Used : 0-10 Scale Location : Abdomen, right lower, Abdomen, right upper Yanet Webb Rn - 09/11/2021 2:27 EDT Pain Scale Intensity : 8 Yanet Webb Rn - 09/11/2021 2:27 EDT Image 4 - Images currently included in the form version of this document have not been included in the text rendition version of the form. documented in this encounter Plan of Treatment Not on file documented as of this encounter Visit Diagnoses Not on filedocumented in this encounter
[2024-10-26 21:26] VITALS: BP 170/120; PULSE 116; RESP 18; TEMP 36.7; O2SAT 97; BMI 31.9
--- NOTE | 2024-10-26 21:27 | ED_ITS ---
<Statement entered by Eduardo Taveras MD - 10/27/24 00:32> I was consulted by the JAYLON, and we discussed the complexity of the problems being addressed. I approved the treatment and management plan for this patient's care in the emergency department, thus performing a substantive portion of the medical decision making. Eduardo Taveras MD Discharge Plan Disposition Patient Disposition: Home, Self-Care Referrals Follow up/Referrals: Provider,Referral, MD [Primary Care Provider, Medical] - See instructions Activity Restrictions/Add. Instructions Additional Instructions/Restrictions: Today you were evaluated in the emergency department for a bilateral otitis externa. The antibiotics that you were given and started this morning are the correct antibiotics for this diagnosis. You will most likely not notice a difference in pain until around 24 to 48 hours after being on the medication. You may take acetaminophen for pain relief. Please follow-up with your family doctor within 1 week. Return to the ED for any worsening of your condition. Clinical Impressions Clinical Impression: Otitis externa Qualifiers: Otitis externa type: unspecified type Chronicity: acute Laterality: bilateral Qualified Code(s): H60.503 - Unspecified acute noninfective otitis externa, bilateral Print Language Print Language: Hebrew Discharge ED Provider: Eduardo Taveras General Adult HPI General Chief complaint: Ear Stated complaint: head , jaw,and ear pain Time Seen by Provider: 10/26/24 21:17 History of Present Illness HPI narrative: patient is a 24-year-old female who presents to the ED for bilateral ear pain for several days. Patient has been evaluated for this twice previously and given a prescription for oral doxycycline and ciprofloxacin dexamethasone eardrops. Related Data Allergies Allergy/AdvReac Type Severity Reaction Status Date / Time cefdinir (From Omnicef) Allergy Hives Verified 10/26/24 21:32 ibuprofen (From Motrin) Allergy Hives Verified 10/26/24 21:32 Penicillins Allergy Hives Verified 10/26/24 21:32 [facility] Disclaimer: The information contained in this section may have been updated after the patient was seen, as this information can be updated by other users. Social History Smoking Status: Never smoker alcohol intake: never current occupational status: unemployed Travel in the last 8 weeks?: None ROS Obtained: Yes Systems reviewed as appropriate & no additional complaints except as documented Physical Exam General General appearance: alert and in no apparent distress Head Head exam: atraumatic and normocephalic Eye Eye exam: Present normal appearance and PERRL ENT ENT exam: Present normal exam and other (Bilateral ear canal with tenderness and edema) Neck Neck exam: Present normal inspection Chest Chest inspection: Present normal inspection and symmetric chest wall rise; Absent tenderness Respiratory Respiratory exam: Present normal lung sounds bilaterally Cardiovascular Cardiovascular exam: Present regular rate Abdominal Exam Abdominal exam: Present soft and normal bowel sounds; Absent tenderness Extremities Exam Extremities exam: Present normal inspection and full ROM Back Exam Back exam: Present normal inspection and full ROM Neurological Exam Neurological exam: Present alert and oriented X3 Psychiatric Psychiatric exam: Present normal affect and normal mood Skin Skin exam: Present warm and dry Medical Decision Making Medical Records Screening: Per USPSTF and CDC recommendations, given the prevalence of disease in our region, it is our hospital?s policy to screen for HIV and viral Hepatitis for all patients aged 18 and over and those with ongoing risk factors. [place] Inquiry Pt receiving controlled substance: No Vital Signs: 10/26/24 21:26 10/26/24 21:32 Temperature 98.1 F 98.1 F Temperature Source Oral Pulse Rate 116 H Pulse Rate [Radial] 116 H Respiratory Rate 18 18 Blood Pressure 170/120 H Blood Pressure [Right Arm] 170/120 H Blood Pressure Mean [Right Arm] 136 Blood Pressure Position Sitting Blood Pressure Position [Right Arm] Sitting 02 Sat by Pulse Oximetry 97 Oxygen Delivery Method Room Air Room Air Medical Decision Narrative: In summary, patient is a 24-year-old female who presents to the ED for bilateral ear pain for several days. Patient has been evaluated for this twice previously and given a prescription for oral doxycycline and ciprofloxacin dexamethasone eardrops. Patient states she just picked the medications up and started them today. She states that she has continued ear pain and symptoms since she started the medication. She takes Tylenol for pain, states she is unable to take ibuprofen due to allergic reaction. She denies any additional complaints. Denies fever, chills, body aches, headache, visual disturbances, posterior neck pain, chest pain, shortness of breath. Differential diagnosis include otitis externa, otitis media, mastoiditis, among others. Upon initial evaluation patient is alert, oriented and cooperative. She is very pleasant. She is stable. She has elevated blood pressure. Bilateral canals tender upon movement and examination. No drainage. I discussed with patient that she is on the correct medication for this diagnosis, I advised her she has not given the medication long enough to work. Discussed to continue this over the next 48 hours and she should feel relief. Clement cervantes discussed taking acetaminophen for pain. Discussed need for follow-up with PCP. Discussed return precautions to the ED. Critical Care Critical Care Time Critical Care Time: No
[2024-10-26 21:32] VITALS: BP 170/120; PULSE 116; RESP 18; TEMP 36.7; O2SAT 97
== END 2024-10-26 21:34 | disposition home or self-care (01) ==
PROVIDERS: Emergency Provider Emergency Medicine
DX: H60.503 Unspecified acute noninfective otitis externa, bilateral (principal); R68.84 Jaw pain
CPT/HCPCS: 99283